=== PATIENT | male | born 1975 | race Caucasian/White ===

== ENCOUNTER 2017-03-01 09:31 | Emergency (ER) | payer SELFPAY ==
[~2017-03-01] VITALS: Ht 198.1 cm; Wt 110.0 kg
[2017-03-01 09:34] VITALS: BP 154/86; PULSE 89; RESP 20; TEMP 98.1; O2SAT 100
[2017-03-01] MEDS ORDERED: BACT800T5 PO (09:44)
--- NOTE | 2017-03-01 09:45 | PD ---
HPI Chief Complaint: Laceration/Skin Injury Time Seen by Provider: 09:45 Travel History International Travel<30 days: No Contact w/Intl Traveler<30days: No Traveled to known affect area: No History of Present Illness HPI 42-year-old male who is right-handed, presents to the emergency department for evaluation of an injury sustained to his left second digit. Patient was using a circular saw when he cut off the tip of his left second digit. Patient reports severe pain at the site. It is constant, throbbing. Patient has no other injury to report. He is up-to-date on his tetanus vaccination. [facility] Past Medical History Medical History: Denies Significant Hx Cancer: No Cardiovascular Problems: No Diabetes: No Endocrine: No Genitourinary: No Headaches: Yes Hepatitis: No Hiatal Hernia: No Hypertension: Yes (NO MEDS) Immune Disorder: No Musculoskeletal: No Neurologic: No Psychiatric: No Reproductive: No Respiratory: No Thyroid Disease: No Past Surgical History Abdominal Surgery: Yes (APPY) AICD: No Appendectomy: Yes Body Medical Devices: NONE Cardiac Surgery: No Ear Surgery: No Endocrine Surgery: No Eye Surgery: No Genitourinary Surgery: No Gynecologic Surgery: No Joint Replacement: No Oral Surgery: No Pacemaker: No Thoracic Surgery: No Social History Alcohol Use: Yes (WEEKENDS) Tobacco Use: Yes (03 13/2-2 ) Substance Use: No Allergies-Medications (Allergen,Severity, Reaction): Coded Allergies: penicillin G (Unverified Allergy, Unknown, UNKNOWN A CHILD, 10/25/16) Reported Meds & Prescriptions Reported Meds & Active Scripts Active Reported Bactrim DS (Sulfamethoxazole-Trimethoprim) 800-160 Mg Tab 1 Tab PO BID Review of Systems Except as stated in HPI: all other systems reviewed are Neg Physical Exam Narrative GENERAL: Well-nourished, well-developed male patient, ambulatory and in no acute distress. SKIN: Focused skin assessment warm/dry. HEAD: Normocephalic. EYES: No scleral icterus. No injection or drainage. NECK: Supple, trachea midline. No JVD or lymphadenopathy. CARDIOVASCULAR: Elevated rate and rhythm without murmurs, gallops, or rubs. RESPIRATORY: Breath sounds coarse, equal bilaterally. No accessory muscle use. MUSCULOSKELETAL: No cyanosis, or edema. There is an amputation of the distal left second digit, diagonally across the nail. Bleeding is controlled. No limitation in range of motion. Cap refill is within normal limits. BACK: Nontender without obvious deformity. No CVA tenderness. Data Data Last Documented VS Vital Signs Date Time Temp Pulse Resp B/P (MAP) Pulse Ox O2 Delivery O2 Flow Rate FiO2 03/01/17 09:34 98.1 89 20 154/86 (108) 100 Orders Orders Lidocaine 2% Inj (Xylocaine 2% Inj) (03/01/17 10:00) Bupivacaine Pf 0.5% Inj (Marcaine Pf 0.5 (03/01/17 10:00) Finger (Qto3lpy) (03/01/17 ) Povidone Iodine 10% Oint (Betadine 10% O (03/01/17 11:45) Iv Access Insert/Monitor (03/01/17 11:45) Cefazolin Inj (Ancef Inj) (03/01/17 11:45) MDM Medical Decision Making Medical Screen Exam Complete: Yes Emergency Medical Condition: Yes Medical Record Reviewed: Yes Differential Diagnosis Laceration superficial versus deep versus open fracture versus amputation Narrative Course 42-year-old male presents to emergency department for evaluation of a laceration to his left second digit. Patient has amputated the distal aspect of the left second digit. Digital block is complete and complete anesthesia is obtained for adequate assessment and pain control. X-ray imaging confirms an avulsion fracture. Patient was given IV Ancef. I spoke with Dr. Cruz, hand surgeon certified nurse practitioner. He will come and repair the finger at bedside. Patient is updated on the and of care. Pain remains under control at this time. 1400 Dr. Cruz isn't at bedside, repairs patient's digit. 1430Patient is counseled on care and agrees to return immediately with any acute worsening of symptoms. Diagnosis Primary Impression: Amputation of finger of left hand Qualified Codes: S68.119A - Complete traumatic metacarpophalangeal amputation of unspecified finger, initial encounter Referrals: Stella Cruz MD Patient Instructions: Finger Amputation (ED), General Instructions Additional Instructions: Keep the area clean and dry He may wash your hands Wound care as discussed with Dr. Cruz Contact Dr. Cruz's office tomorrow to schedule follow-up for 7 days Return immediately to emergency department with any acute worsening of symptoms Med/Other Pt SpecificInfo: Prescription(s) given Scripts Hydrocodone-Acetaminophen ([place]) 5 Mg-325 Mg Tab 1 TAB PO Q6H Y for PAIN GREATER THAN 5, #15 TAB 0 Refills Prov: Josie Erickson 03/01/17 Ibuprofen (Ibuprofen) 800 Mg Tab 800 MG PO TID Y for PAIN SCALE 1 TO 10, #30 TAB 0 Refills Prov: Josie Erickson 03/01/17 Cephalexin (Keflex) 500 Mg Cap 500 MG PO Q6H for Infection for 5 Days, #20 CAP 0 Refills Prov: Josie Erickson 03/01/17 Disposition: 01 DISCHARGE HOME Condition: Stable Josie Erickson Mar 01, 2017 09:45
[2017-03-01] MEDS ORDERED: BUPIVACAINE HCL PF 0.5% 10 ML VIAL INFIL ONE (10:00)
[2017-03-01] MEDS ORDERED: LIDOCAINE HCL 2% 20 ML VIAL INFIL ONE (10:00)
--- NOTE | 2017-03-01 10:42 | RADRPT ---
EXAM DATE/TIME: 03/01/2017 10:27 [place] COMPARISON: No previous studies available for comparison. INDICATIONS : Cut tip of 2nd finger off with a saw. MEDICAL HISTORY : None. SURGICAL HISTORY : None. ENCOUNTER: Initial ACUITY: 1 day PAIN SCORE: 10/10 LOCATION: FINDINGS: Avulsion distal tuft second finger fragmentation of part of the distal phalanx CONCLUSION: Avulsion fracture as above. Rajesh Simmons MD FACR on March 01, 2017 at 10:39 Board Certified Radiologist. This report was verified electronically.
[2017-03-01] MEDS ORDERED: POVIDONE IODINE 10% OINT 30 GM TUBE TOPICAL ONE (11:45)
[2017-03-01] MEDS ORDERED: CEPH-460 PO (14:30)
[2017-03-01] MEDS ORDERED: IBUP1TAB7 PO (14:30)
[2017-03-01] MEDS ORDERED: NORC5TAB PO (14:30)
--- NOTE | 2017-03-01 16:31 | MB ---
cc: RICHAR DARBY M.D. DATE OF CONSULTATION: 03/01/2017 The patient is being seen at the request of Dr. Reed Goetz. REASON FOR CONSULTATION Amputation of the left index fingertip. HISTORY OF PRESENT ILLNESS The patient was using a circular saw and cut off the tip of his left index finger. 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 The patient has been on Bactrim for unrelated problem and he is up-to-date on his tetanus. The patient was evaluated in the emergency room and consultation is requested regarding treatment and evaluation of the amputation. PAST MEDICAL HISTORY The patient has a history of hypertension and headaches. PAST SURGICAL HISTORY Significant for appendectomy. SOCIAL HISTORY He notes that he does use alcohol and tobacco. ALLERGIES He says he is allergic to PENICILLIN but he does not know why. MEDICATION Listed on the chart. REVIEW OF SYSTEMS Review of systems is negative except as noted above. PHYSICAL EXAMINATION GENERAL: The patient is sitting comfortably on a stretcher. VITAL SIGNS: His temperature is 98.1, pulse is 89, respirations of 20, blood pressure is 154/86 with a pulse oximetry of 100. HEENT: His extraocular muscles are intact. His pupils are equal, round and reactive to light. His mouth is clear. NECK: His neck is supple without masses. LUNGS: Clear. HEART: Regular rate and rhythm. EXTREMITIES: Examination of his upper extremities reveals an amputation of part of the tip of his left index finger. The distal phalanx is approximately 40% amputated, with the tissue included, there is a flap of tissue present on the ulnar side of the finger. The defect measures approximately 1.1 x 1.3 cm in greatest dimension. There is exposed bone. The tip does appear to be adequately perfused. There is not a significant amount of contamination. Blood supply is adequate. IMAGING STUDIES Review of the x-rays: The x-ray of the left index finger reveals the amputation of the tip of the finger. The amount of bone that is missing is approximately 5% of the finger. There appears to be a healed injury from the fifth metacarpal. IMPRESSION The patient has a partial amputation to the tip of the left index finger. PLAN Operative repair. The operation will be performed in the emergency room. The patient understands and accepts the risks and complications of the surgery. MD ELIZABETH Jones/CARLOS ENRIQUE /3:08 PM /3:52 PM
--- NOTE | 2017-03-03 10:38 | MP ---
cc: RICHAR DARBY M.D. DATE OF SURGERY 03/01/2017 PREOPERATIVE DIAGNOSIS Partial amputation to the tip of the left index finger. POSTOPERATIVE DIAGNOSIS Partial amputation to the tip of the left index finger. PROCEDURE 1. Excisional debridement of skin, subcutaneous tissue and bone of the left index fingertip. 2. Closure with local flap anesthesia. ANESTHESIA Local block. SURGEON Dr. Darby INDICATIONS A 42-year-old male with a circular saw injury to the tip of his left index finger which happened earlier today. FINDINGS The wound which was very clean was repaired by cutting back to bone, debriding the edges and advancing the flap to cover the wound. OPERATIVE TIME Approximately 45 minutes. PROCEDURE The patient was seen in emergency room where the operation was performed. The patient was in supine position. The left hand was prepped with Hibiclens and draped in the usual sterile fashion. After anesthetizing the finger, prepping and draping it, a sterile glove was placed around the finger and rolled up to act as a tourniquet. Once the tourniquet was in place the finger was copiously irrigated with saline and debrided with a rongeur. The rongeur debrided bone back in order to have it smooth and level. The edges of the wound were sharply debrided. After copious irrigation the flap was undermined and rotated and noted to cover the defect. It was sewn into the nail plate and the area of the hyponychium which was now recreated and laterally was also sewn with interrupted sutures. Once the wound was closed, the tourniquet was removed and the hand was cleansed of Betadine and blood and it was dressed with povidone-iodine ointment, Telfa, 4x4s and Dudley. The patient was then given back to the care of the emergency room staff. DISPOSITION The patient is to return next week for followup. The patient is advised to keep his hand elevated, keep dressing clean and dry and not to change it. He is to call the office with any questions or problems. MD ELIZABETH Jones/YAMEL /3:14 PM /10:07 AM
== END 2017-03-01 14:44 | disposition home or self-care (01) ==
LOC: NEPD 09:31
DX: S62.631B Displaced fracture of distal phalanx of left index finger, initial encounter for open fracture (principal); S68.121A Partial traumatic metacarpophalangeal amputation of left index finger, initial encounter; I10 Essential (primary) hypertension; F17.200 Nicotine dependence, unspecified, uncomplicated; W31.2XXA Contact with powered woodworking and forming machines, initial encounter; Z88.0 Allergy status to penicillin
CPT/HCPCS: 73140; 96374; 99284; J0690